=== PATIENT | male | born 1950 | race Caucasian/White ===

== ENCOUNTER 2018-10-05 07:33 | Emergency (ER) | payer MEDICARE, MEDICAID, SELFPAY ==
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
[2018-10-05 08:00] VITALS: BP 157/100; PULSE 83; RESP 19; TEMP 36.8; O2SAT 100; BMI 20.7
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
[2018-10-05] MEDS: SODIUM CHLORIDE 0.9% 1,000 ML 1000 ML IV ×4 (08:24→14:34)
[2018-10-05] MEDS: KETOROLAC 60 MG/2 ML VIAL 30 MG IV (08:24)
[2018-10-05 09:12] LABS: Add Manual Diff / Slide Review NO; Basophils Absolute Auto 100 /uL (0-100); Basophils Percent Auto 0.6 % (0-2); Eosinophils Absolute Auto 300 /uL (0-450); Eosinophils Percent Auto 3.3 % (2-4); Hematocrit 38.8 % (41-53); Hemoglobin 12.7 g/dL (13.5-17.5); Lymphocytes Absolute Auto 2000 /uL (1100-4500); Lymphocytes Percent Auto 21.9 % (25-40); Mean Corpuscular HGB Conc 32.8 % (30-36); Mean Corpuscular Hemoglobin 29.9 PG (26-34); Mean Corpuscular Volume 91.1 fL (80-100); Monocytes Absolute Auto 900 /uL (0-900); Monocytes Percent Auto 9.7 % (3-14); Neutrophils Absolute Auto 6000 /uL (1500-7000); Neutrophils Percent Auto 64.5 % (50-75); Platelet Count 229 X10^3/uL (150-400); Red Blood Cell Count 4.26 X10^6/uL (4.5-5.9); Red Cell Distribution Width 13.7 % (11.6-14.8); White Blood Cell Count 9.3 X10^3/uL (4.5-11.0)
[2018-10-05 09:24] LABS: Alanine Aminotransferase 17 IU/L (21-72); Albumin 4.3 g/dL (3.5-5.0); Albumin Globulin Ratio 1.3 (1.0-2.8); Alkaline Phosphatase 64 U/L (38-126); Aspartate Aminotransferase 22 IU/L (17-59); BUN Creatinine Ratio 9.7 (6-22); Bilirubin Total 0.7 mg/dL (0.2-1.3); Blood Urea Nitrogen 76 mg/dL (9-20); Calcium 9.1 mg/dL (8.4-10.2); Carbon Dioxide 20 mmol/L (22-32); Chloride 103 mmol/L (98-107); Globulin 3.4 g/dL (1.7-4.1); Glucose 80 mg/dL (80-110); HEMOLYSIS < 15 (0-50); Lipase 66 U/L (23-300); Potassium 5.2 mmol/L (3.4-5.1); Sodium 138 mmol/L (137-145); Total Protein 7.7 g/dL (6.3-8.2)
--- NOTE | 2018-10-05 09:47 | DI.CT.S_ITS ---
PROCEDURE: CT ABDOMEN PELVIS WO CON INDICATIONS: urinary retention, elevated creatinin of 7, R flank/abd pain TECHNIQUE: Noncontrast 5 mm thick sections acquired from the diaphragms to the symphysis. 5 mm coronal and sagittal reformats were then performed. For radiation dose reduction, the following was used: automated exposure control, adjustment of mA and/or kV according to patient size. COMPARISON: None. FINDINGS: Image quality: Excellent. ABDOMEN: Lung bases: There is a 6 mm diameter subpleural nodule within the right anterolateral lung base. There is a 5 mm subpleural nodule within the right middle lobe lateral segment anteroinferiorly. Mild bibasilar scarring versus atelectasis is present. Heart size is normal. Solid organs: Liver is normal in size. Gallbladder is within normal limits. Pancreas is normal in contours. Spleen is normal in size. No adrenal nodules. The there is mild perinephric fat stranding bilaterally. Mild renal enlargement is present bilaterally. No nephrolithiasis. Renal contours are within normal limits. There is moderate bilateral hydronephrosis and moderate diffuse bilateral ureteral distention. Peritoneum and bowel: Unenhanced bowel loops demonstrate normal wall thickness and caliber. No free fluid or air. Normal appendix. Nodes and vessels: No retroperitoneal or mesenteric adenopathy by size criteria. Aorta and inferior vena cava are normal in caliber. Miscellaneous: No ventral hernias. PELVIS: Genitourinary: A Barnett catheter is present. The urinary bladder is diffusely moderately thickened. Miscellaneous: No inguinal hernias or adenopathy. Bones: No suspicious bony lesions. No vertebral body compression fractures. IMPRESSION: 1. Diffuse urinary bladder wall thickening, most suggestive of cystitis. Underlying neoplasm may also be present. 2. Bilateral distal ureteral obstruction with moderate bilateral hydronephrosis. 3. Normal appendix. 4. Right lung base nodules. Followup is recommended as below. Fleischner Society criteria for SOLID lung nodule followup. Nodule size (mm)Low-risk patientHigh-risk patient<6 (single or multiple)No routine followup.Optional CT at 12 months. 6-8 (single or multiple)CT at 6-12 months, then optional CT at 18-24 mo.CT at 6-12 months, then CT at 18-24 months. >8 (single)CT, PET-CT, or biopsy at 3 months. Same as for low-risk pts. >8 (multiple)CT at 3-6 months, then optional CT at 18-24 mo.CT at 3-6 months, then CT at 18-24 months. Recommendations do not apply to lung cancer screening, patients with immunosuppression, or patients with known primary cancer. Dictated by: Bull Smith M.D. on 10/05/2018 at 10:06 Approved by: Bull Smith M.D. on 10/05/2018 at 10:10
[2018-10-05 09:53] LABS: Bacteria Urine None Seen; RBC Urine None Seen (0-5/HPF)
[2018-10-05 10:00] VITALS: BP 138/97; PULSE 78; RESP 14; O2SAT 99
[2018-10-05 10:00] LABS: Appearance Urine UA CLEAR; Bilirubin Urine UA NEGATIVE (NEGATIVE); Color Urine UA YELLOW; Glucose Urine UA NEGATIVE (Negative); Ketones Urine UA NEGATIVE (NEGATIVE); Leukocyte Esterase Urine UA NEGATIVE (NEGATIVE); Nitrite Urine UA NEGATIVE (Negative); Occult Blood Urine UA NEGATIVE (Negative); Protein Urine UA NEGATIVE (Negative); Urobilinogen Urine UA 0.2 E.U./dL (0.2); pH Urine UA 6.5 (4.5-8.0)
[2018-10-05 10:17] LABS: WBC Urine 0-1/HPF (0-5/HPF)
[2018-10-05 10:18] LABS: Culture Indicated Urine Cult Not Indicated
[2018-10-05 11:00] VITALS: BP 148/102; PULSE 93; RESP 12; O2SAT 98
[2018-10-05 12:00] VITALS: BP 132/101; PULSE 95; RESP 12; O2SAT 98
[2018-10-05 13:00] VITALS: BP 147/103; PULSE 73; RESP 14; O2SAT 100
[2018-10-05 14:00] VITALS: BP 137/96; PULSE 75; RESP 100; O2SAT 100
== END 2018-10-05 14:46 | disposition short-term general hospital (02) ==
PROVIDERS: Emergency Provider Emergency Medicine
DX: R33.9 Retention of urine, unspecified (principal); N19 Unspecified kidney failure; N13.9 Obstructive and reflux uropathy, unspecified
CPT/HCPCS: 36415; 51701; 51798; 74176; 80053; 81001; 81003; 83690; 85025; 87086; 96361; 96374; 99284; 99285; J1885